=== PATIENT | female | born 1965 | race Caucasian/White ===

== ENCOUNTER → 2021-02-09 14:41 | Outpatient (CLI) | payer OTHER, SELFPAY ==
--- NOTE | 2021-02-09 14:45 | DI.MG.S_ITS ---
BILATERAL DIGITAL DIAGNOSTIC MAMMOGRAM 3D/2D: 02/09/2021 CLINICAL: Breast pain. [facility] There are scattered fibroglandular elements in both breasts. No significant masses, calcifications, or other findings are seen in either breast. IMPRESSION: INCOMPLETE: NEEDS ADDITIONAL IMAGING EVALUATION There is no abnormality seen in the right breast to correspond with the pain at 10 o'clock, however, ultrasound is recommended. Ultrasound will be performed immediately following the current exam. This exam was interpreted at Station ID: [id number]. NOTE: For mammograms, a report in lay terms will be sent to the patient. Approximately 15% of breast malignancies will not be visualized mammographically. In the management of a palpable breast mass, a negative mammogram must not discourage biopsy of a clinically suspicious lesion. Electronically Signed By: Chacorta Mendoza M.D. ddp/:02/09/2021 15:43:15 ACR BI-RADS Category 0: Incomplete [id number]
--- NOTE | 2021-02-09 14:46 | DI.US.S_ITS ---
LIMITED ULTRASOUND OF RIGHT BREAST: 02/09/2021 CLINICAL: Focal right breast pain. Comparison is made to exams dated: 02/09/2021 mammogram and 01/04/2018 mammogram - [facility]. Real-time ultrasound of the right breast 10 o'clock region was performed on the area of interest. No discrete cystic or solid mass lesion identified in the area of focal pain. IMPRESSION: NEGATIVE There is no sonographic evidence of malignancy. There is no abnormality seen in the right breast to correspond with the pain at 10 o'clock, however, clinical followup is recommended. A 1 year screening mammogram is recommended. This exam was interpreted at Station ID: [id number]. Electronically Signed By: Chacorta Mendoza M.D. [email or web address]/:02/09/2021 15:57:12 letter sent: Clinical Evaluation Ultrasound BI-RADS: 1 Negative
== END ==
PROVIDERS: PCP Internal Medicine; Referring Provider Internal Medicine; Visit Provider Internal Medicine
DX: R92.2 Inconclusive mammogram; N64.4 Mastodynia
CPT/HCPCS: 76642; 77066; G0279